=== PATIENT | female | born 1950 | race Caucasian/White ===

== ENCOUNTER → 2016-12-18 | Outpatient (CLI) | payer OTHER ==
--- NOTE | 2016-12-19 10:38 | MG ---
HISTORY: SCREENING Comparison: Multiple priors dating back to 2008 FINDINGS: Bilateral CC and MLO projections of the right and left breast were obtained. Scattered fibroglandul ar tissue is seen to be present without significant interval change. No suspicious architectural di stortion, mass or clustered microcalcifications can be observed to suggest malignancy. No skin thic kening or nipple retraction is appreciated. No pathological lymphadenopathy can be identified. Dennys ign-appearing calcifications are noted within the right and left breast. A left-sided cardiac pacing device is noted. IMPRESSION: NO RADIOGRAPHIC EVIDENCE OF MALIGNANCY. ACR CATEGORY 2 - benign findings. FOLLOW-UP EXAM 1 YEAR. Diagnostic CAD was utilized and reviewed. * 0 (ZERO) - ASSESSMENT INCOMPLETE; ADDITIONAL IMAGING IS NEEDED. * 1/ (ONE) - NEGATIVE. * 2/II (TWO) - BENIGN FINDINGS. * 3/III (THREE) - PROBABLY BENIGN FINDING; SHORT INTERVAL FOLLOW-UP SUGGESTED. * 4/IV (FOUR) - SUSPICIOUS ABNORMALITY; BIOPSY SHOULD BE CONSIDERED. * 5/V (FIVE) - HIGHLY SUSPICIOUS OF MALIGNANCY; BIOPSY SHOULD BE PERFORMED. A NEGATIVE X-RAY REPORT SHOULD NOT DELAY BIOPSY IF A DOMINANT OR CLINICALLY SUSPICIOUS MASS IS PRESENT; 4 TO 8 PERCENT OF CANCERS ARE NOT IDENTIFIED BY X-RAY. A NEG ATIVE REPORT MAY REINFORCE THE CLINICAL IMPRESSION. ADENOSIS AND DENSE BREASTS MAY OBSCURE AN UNDER LYING NEOPLASM. Reported By:
== END ==
LOC: RAD 15:19
PROVIDERS: ATTEND Internal Medicine
DX: Z12.31 Encounter for screening mammogram for malignant neoplasm of breast (principal)
CPT/HCPCS: 77067

== ENCOUNTER → 2017-12-30 | Outpatient (CLI) | payer OTHER ==
--- NOTE | 2017-12-30 12:49 | MG ---
HISTORY: SCREENING Comparison: 12/18/2016 FINDINGS: Bilateral CC and MLO projections of the right and left breast were obtained. Scattered fibroglandula r tissue is seen to be present. No significant architectural distortion, mass or clustered microcalc ifications can be observed to suggest malignancy. No skin thickening or nipple retraction is appreci ated. No pathological lymphadenopathy can be identified. Benign-appearing calcifications scattered throughout the right and left breasts are observed. IMPRESSION: NO RADIOGRAPHIC EVIDENCE OF MALIGNANCY. ACR CATEGORY 2 - benign findings. FOLLOW-UP EXAM 1 YEAR. Diagnostic CAD was utilized and reviewed. * 0 (ZERO) - ASSESSMENT INCOMPLETE; ADDITIONAL IMAGING IS NEEDED. * 1/ (ONE) - NEGATIVE. * 2/II (TWO) - BENIGN FINDINGS. * 3/III (THREE) - PROBABLY BENIGN FINDING; SHORT INTERVAL FOLLOW-UP SUGGESTED. * 4/IV (FOUR) - SUSPICIOUS ABNORMALITY; BIOPSY SHOULD BE CONSIDERED. * 5/V - HIGHLY SUSPICIOUS OF MALIGNANCY; BIOPSY SHOULD BE PERFORMED. A NEGATIVE X-RAY REPORT SHOULD NOT DELAY BIOPSY IF A DOMINANT OR CLINICALLY SUSPICIOUS MASS IS PRESENT; 4 TO 8 PERCENT OF CANCERS ARE NOT IDENTIFIED BY X-RAY. A NEGA TIVE REPORT MAY REINFORCE THE CLINICAL IMPRESSION. ADENOSIS AND DENSE BREASTS MAY OBSCURE AN UNDERLY ING NEOPLASM. Reported By:
== END ==
LOC: RAD 10:13
PROVIDERS: ATTEND Internal Medicine
DX: Z12.31 Encounter for screening mammogram for malignant neoplasm of breast (principal)
CPT/HCPCS: 77067

== ENCOUNTER 2024-01-06 17:04 | Observation (INO) ==
--- NOTE | 2024-01-06 17:24 | DR.NAUSEAF ---
HPI <Brendan Abbott Saurav Filed: 01/07/24 08:52> Time Seen Time Seen by Provider: 01/06/24 17:23 Complaints Chief Complaint Doctors Comments: 73-year-old female brought in for evaluation. Had sudden onset of dizziness/vertigo yesterday evening. Went to the ER in [place], was evaluated there. Had a noncontrast CT scan, diagnosed with vertigo, sent home on meclizine/amoxicillin. Patient has had persistent nausea and vomiting, especially with any head movement. Having dull headache. Having generalized weakness. Patient with difficulty standing due to her vertigo. Patient feels she is dehydrated, has had decreased p.o. intake. Having persistent nausea. 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 Family History Family Medical History: Cancer Social History Does patient currently use any type of tobacco product: No Alcohol Use: None Do you use any recreational Drugs:: No Travel Risk Coronavirus risk:travel/contact w/high risk person: No Has patient experienced Coronavirus symptoms: No ROS <Brendan Abbott Saurav Filed: 01/07/24 08:52> Review of Systems Constitutional: Weakness Eyes: No Symptoms Reported ENTM: No Symptoms Reported Respiratoy: No Symptoms Reported Cardiovascular: No Symptoms Reported Gastrointestinal/Abdominal: Nausea and Vomiting Genitourinary: No Symptoms Reported Neurological: Weakness, Dizziness and Problems Walking Musculoskeletal: No Symptoms Reported Integumentary: No Symptoms Reported Hematologic/Lymphatic: No Symptoms Reported Psychiatric: No Symptoms Reported All Other Systems: Reviewed and Negative PE <Brendan Abbott Saurav Filed: 01/07/24 08:52> Vital Signs Vitals: Vital Signs Temperature 98.1 F Pulse Rate 68 Pulse Rate 71 Pulse Rate 66 Pulse Rate 78 Pulse Rate 74 Pulse Rate 67 Pulse Rate 67 Pulse Rate 69 Pulse Rate 69 Pulse Rate 72 Pulse Rate 73 Respiratory Rate 16 Blood Pressure 144/64 Blood Pressure 149/68 Blood Pressure 149/68 Blood Pressure 148/70 Blood Pressure 144/71 Blood Pressure 137/65 Blood Pressure 132/61 O2 Sat by Pulse Oximetry 99 O2 Sat by Pulse Oximetry 98 O2 Sat by Pulse Oximetry 99 O2 Sat by Pulse Oximetry 97 O2 Sat by Pulse Oximetry 99 O2 Sat by Pulse Oximetry 100 O2 Sat by Pulse Oximetry 100 O2 Sat by Pulse Oximetry 94 O2 Sat by Pulse Oximetry 93 O2 Sat by Pulse Oximetry 91 O2 Sat by Pulse Oximetry 98 General General Appearance: Alert and In No Apparent Distress Head Head Exam: Normal Inspection, Atraumatic and Normocephalic Eyes Eye exam: PERRL, EOMI and Nystagmus (To the left) ENT ENT Exam: Normal Oropharynx, Mucous Membranes Moist and TM's Normal Bilaterally Neck Neck Exam: Normal Inspection Respiratory Respiratory Exam: Normal Lung Sounds Bilat; negative Accessory Muscle Use or Respiratory Distress Cardiovascular Cardiovascular Exam: Regular Rate, Normal Rhythm and Normal Heart Sounds Abdominal Exam Abdominal Exam: Normal Bowel Sounds and Soft; negative Tenderness Extremities Extremities Exam: Normal Inspection and Full ROM; negative Edema Neurologic Neurological Exam: Alert, Oriented X3, CN II-XII Intact and Other (Has normal [id number]); negative Motor Sensory Deficit Skin Skin Exam: Warm and Dry <Elle Gaitan - Last Filed: 01/06/24 20:36> Vital Signs Vitals: Vital Signs Temperature 98.1 F Pulse Rate 68 Pulse Rate 71 Pulse Rate 66 Pulse Rate 78 Pulse Rate 74 Pulse Rate 67 Pulse Rate 67 Pulse Rate 69 Pulse Rate 69 Pulse Rate 72 Pulse Rate 73 Respiratory Rate 16 Blood Pressure 144/64 Blood Pressure 149/68 Blood Pressure 149/68 Blood Pressure 148/70 Blood Pressure 144/71 Blood Pressure 137/65 Blood Pressure 132/61 O2 Sat by Pulse Oximetry 99 O2 Sat by Pulse Oximetry 98 O2 Sat by Pulse Oximetry 99 O2 Sat by Pulse Oximetry 97 O2 Sat by Pulse Oximetry 99 O2 Sat by Pulse Oximetry 100 O2 Sat by Pulse Oximetry 100 O2 Sat by Pulse Oximetry 94 O2 Sat by Pulse Oximetry 93 O2 Sat by Pulse Oximetry 91 O2 Sat by Pulse Oximetry 98 COURSE <Brendan Abbott - Last Filed: 01/07/24 08:52> Treatment Treatment: 73-year-old female with vertigo, nausea and vomiting over the past two days. Evaluated another ER last p.m. Not doing much better. Having persistent nausea, unable to stand up easily. Workup initiated. Patient given IV fluids, IV Protonix here. 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 5 -CBC, CMP unremarkable. Finished 1 L normal saline. Just urinated. Pt feeling poorly, dizziness & nausea persists. Given p.o. meclizine, 25 mg, and Ativan, 1 mg IV. Will continue IV fluids, will plan on admitting the patient for further treatment. Discussed with Dr. Whelan, on-call for admissions. Accepts the admission. He would like me to repeat the CT of the head since was not done here previously. <Elle Gaitan - Last Filed: 01/06/24 20:36> Treatment Treatment: 73-year-old female with vertigo, nausea and vomiting over the past two days. Evaluated another ER last p.m. Not doing much better. Having persistent nausea, unable to stand up easily. Workup initiated. Patient given IV fluids, IV Protonix here. 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 5 -CBC, CMP unremarkable. Finished 1 L normal saline. Just urinated. Pt feeling poorly, dizziness & nausea persists. Given p.o. meclizine, 25 mg, and Ativan, 1 mg IV. Will continue IV fluids, will plan on admitting the patient for further treatment. Discussed with Dr. Whelan, on-call for admissions. Accepts the admission. He would like me to repeat the CT of the head since was not done here previously. 20:[address] without contrast did not reveal an acute process. Patient has been admitted to Dr. Whelan's service for further evaluation and treatment. Patient has been stable in the emergency department. ROR <Brendan Baileywashington - Last Filed: 01/07/24 08:52> Labs Reviewed 01/07/24 05:44 01/07/24 05:44 Laboratory: WBC 14.5 X10^3/uL (3.6-10.0) H 01/06/24 17:45 RBC 4.69 X10^6/uL (3.5-5.4) 01/06/24 17:45 Hgb 14.0 g/dL (12.0-16.0) 01/06/24 17:45 Hct 41.9 % (36.0-47.0) 01/06/24 17:45 MCV 89.3 fL (80.0-100.0) 01/06/24 17:45 MCH 29.8 pg (27.0-34.0) 01/06/24 17:45 MCHC 33.4 g/dL (33.0-35.0) 01/06/24 17:45 RDW 13.7 % (11.6-16.5) 01/06/24 17:45 Plt Count 249 X10^3/uL (150.0-450.0) 01/06/24 17:45 MPV 8.0 fL (7.4-11.0) 01/06/24 17:45 Neut % (Auto) 79.8 % (42.0-75.0) H 01/06/24 17:45 Lymph % (Auto) 14.9 % (21.0-51.0) L 01/06/24 17:45 Cassia % (Auto) 4.8 % (0.0-13.0) 01/06/24 17:45 Eos % (Auto) 0.1 % (0.9-2.9) L 01/06/24 17:45 Baso % (Auto) 0.4 % (0.2-1.0) 01/06/24 17:45 Neut # (Auto) 11.6 x10^3/uL (2.2-4.8) H 01/06/24 17:45 Lymph # (Auto) 2.2 X10^3/uL (1.3-2.9) 01/06/24 17:45 Cassia # (Auto) 0.7 x10^3/uL (0.3-0.8) 01/06/24 17:45 Eos # (Auto) 0.0 x10^3/uL (0.0-0.2) 01/06/24 17:45 Baso # (Auto) 0.1 X10^3/uL (0.0-0.1) 01/06/24 17:45 Absolute Nucleated RBC 0.2 /100WBC 01/06/24 17:45 Sodium 142 mmol/L (136-145) 01/06/24 17:45 Corrected Sodium TNP 01/06/24 17:45 Potassium 3.7 mmol/L (3.5-5.1) 01/06/24 17:45 Chloride 105 mmol/L (98-107) 01/06/24 17:45 Carbon Dioxide 28.4 mmol/L (21-32) 01/06/24 17:45 BUN 12 mg/dL (7-18) 01/06/24 17:45 Creatinine 1.02 mg/dL (0.55-1.02) 01/06/24 17:45 Est GFR (MDRD) Af Amer > 60 (>60) 01/06/24 17:45 Est GFR (MDRD) Non-Af 57 (>60) L 01/06/24 17:45 Glucose 103 mg/dL (65-99) H 01/06/24 17:45 Calcium 9.3 mg/dL (8.5-10.1) 01/06/24 17:45 Corrected Calcium 9.9 mg/dL (8.5-10.1) 01/06/24 17:45 Total Bilirubin 0.60 mg/dL (0.2-1.0) 01/06/24 17:45 AST 24 Units/L (15-37) 01/06/24 17:45 ALT 33 Units/L (12-78) 01/06/24 17:45 Alkaline Phosphatase 84 Units/L (46-116) 01/06/24 17:45 Total Protein 8.3 g/dL (6.4-8.2) H 01/06/24 17:45 Albumin 3.3 g/dL (3.4-5.0) L 01/06/24 17:45 Globulin 5.0 g/dL (2.5-4.5) H 01/06/24 17:45 Albumin/Globulin Ratio 0.7 Ratio (1.1-2.1) L 01/06/24 17:45 Lipase 44 Units/L (16-77) 01/06/24 17:45 Specimen Type Clean catch urine 01/06/24 19:45 Urine Color Straw (YELLOW) 01/06/24 19:45 Urine Appearance Clear (CLEAR) 01/06/24 19:45 Urine pH 7.0 (5.0 - 8.0) 01/06/24 19:45 Ur Specific [place] 1.015 (1.000-1.030) 01/06/24 19:45 Urine Protein Negative (NEGATIVE) 01/06/24 19:45 Urine Glucose (UA) Negative (NEGATIVE) 01/06/24 19:45 Urine Ketones Negative (NEGATIVE) 01/06/24 19:45 Urine Blood Negative (NEGATIVE) 01/06/24 19:45 Urine Nitrite Negative (NEGATIVE) 01/06/24 19:45 Urine Bilirubin Negative (NEGATIVE) 01/06/24 19:45 Urine Urobilinogen Normal (NORMAL) 01/06/24 19:45 Ur Leukocyte Esterase Negative (NEGATIVE) 01/06/24 19:45 <Elle Arnie - Last Filed: 01/06/24 20:36> Labs Reviewed Laboratory: WBC 14.5 X10^3/uL (3.6-10.0) H 01/06/24 17:45 RBC 4.69 X10^6/uL (3.5-5.4) 01/06/24 17:45 Hgb 14.0 g/dL (12.0-16.0) 01/06/24 17:45 Hct 41.9 % (36.0-47.0) 01/06/24 17:45 MCV 89.3 fL (80.0-100.0) 01/06/24 17:45 MCH 29.8 pg (27.0-34.0) 01/06/24 17:45 MCHC 33.4 g/dL (33.0-35.0) 01/06/24 17:45 RDW 13.7 % (11.6-16.5) 01/06/24 17:45 Plt Count 249 X10^3/uL (150.0-450.0) 01/06/24 17:45 MPV 8.0 fL (7.4-11.0) 01/06/24 17:45 Neut % (Auto) 79.8 % (42.0-75.0) H 01/06/24 17:45 Lymph % (Auto) 14.9 % (21.0-51.0) L 01/06/24 17:45 Cassia % (Auto) 4.8 % (0.0-13.0) 01/06/24 17:45 Eos % (Auto) 0.1 % (0.9-2.9) L 01/06/24 17:45 Baso % (Auto) 0.4 % (0.2-1.0) 01/06/24 17:45 Neut # (Auto) 11.6 x10^3/uL (2.2-4.8) H 01/06/24 17:45 Lymph # (Auto) 2.2 X10^3/uL (1.3-2.9) 01/06/24 17:45 Cassia # (Auto) 0.7 x10^3/uL (0.3-0.8) 01/06/24 17:45 Eos # (Auto) 0.0 x10^3/uL (0.0-0.2) 01/06/24 17:45 Baso # (Auto) 0.1 X10^3/uL (0.0-0.1) 01/06/24 17:45 Absolute Nucleated RBC 0.2 /100WBC 01/06/24 17:45 Sodium 142 mmol/L (136-145) 01/06/24 17:45 Corrected Sodium TNP 01/06/24 17:45 Potassium 3.7 mmol/L (3.5-5.1) 01/06/24 17:45 Chloride 105 mmol/L (98-107) 01/06/24 17:45 Carbon Dioxide 28.4 mmol/L (21-32) 01/06/24 17:45 BUN 12 mg/dL (7-18) 01/06/24 17:45 Creatinine 1.02 mg/dL (0.55-1.02) 01/06/24 17:45 Est GFR (MDRD) Af Amer > 60 (>60) 01/06/24 17:45 Est GFR (MDRD) Non-Af 57 (>60) L 01/06/24 17:45 Glucose 103 mg/dL (65-99) H 01/06/24 17:45 Calcium 9.3 mg/dL (8.5-10.1) 01/06/24 17:45 Corrected Calcium 9.9 mg/dL (8.5-10.1) 01/06/24 17:45 Total Bilirubin 0.60 mg/dL (0.2-1.0) 01/06/24 17:45 AST 24 Units/L (15-37) 01/06/24 17:45 ALT 33 Units/L (12-78) 01/06/24 17:45 Alkaline Phosphatase 84 Units/L (46-116) 01/06/24 17:45 Total Protein 8.3 g/dL (6.4-8.2) H 01/06/24 17:45 Albumin 3.3 g/dL (3.4-5.0) L 01/06/24 17:45 Globulin 5.0 g/dL (2.5-4.5) H 01/06/24 17:45 Albumin/Globulin Ratio 0.7 Ratio (1.1-2.1) L 01/06/24 17:45 Lipase 44 Units/L (16-77) 01/06/24 17:45 Specimen Type Clean catch urine 01/06/24 19:45 Urine Color Straw (YELLOW) 01/06/24 19:45 Urine Appearance Clear (CLEAR) 01/06/24 19:45 Urine pH 7.0 (5.0 - 8.0) 01/06/24 19:45 Ur Specific [place] 1.015 (1.000-1.030) 01/06/24 19:45 Urine Protein Negative (NEGATIVE) 01/06/24 19:45 Urine Glucose (UA) Negative (NEGATIVE) 01/06/24 19:45 Urine Ketones Negative (NEGATIVE) 01/06/24 19:45 Urine Blood Negative (NEGATIVE) 01/06/24 19:45 Urine Nitrite Negative (NEGATIVE) 01/06/24 19:45 Urine Bilirubin Negative (NEGATIVE) 01/06/24 19:45 Urine Urobilinogen Normal (NORMAL) 01/06/24 19:45 Ur Leukocyte Esterase Negative (NEGATIVE) 01/06/24 19:45 Opioid <Brendan Abbott - Last Filed: 01/07/24 08:52> Opioid Risk Tool Age (Agustin box if 16-45): No History of Preadolescent Sexual Abuse: No Total: 0 Total Score Risk Category: Low Risk Copyright: [employer] predicting aberrant behaviors <Elle Gaitan - Last Filed: 01/06/24 20:36> Opioid Risk Tool Total: 0 Total Score Risk Category: Low Risk Discharge Plan Diagnosis Discharge Problem: Acute labyrinthitis, Nausea and vomiting in adult patient Discharge Plan Patient Disposition: ADMITTED INPATIENT Condition: Stable
[2024-01-06] MEDS: PROTONIX INJ 40 MG VIAL IVP ONE (17:42)
[2024-01-06] MEDS: NS 1,000 ML IV 1,000 ML IV ONE (17:42)
[2024-01-06 17:58] LABS: BASOPHILS # (AUTO) 0.1 X10^3/uL (0.0-0.1); BASOPHILS % (AUTO) 0.4 % (0.2-1.0); EOSINOPHILS % (AUTO) 0.1 % (0.9-2.9); HEMATOCRIT 41.9 % (36.0-47.0); LYMPHOCYTES # (AUTO) 2.2 X10^3/uL (1.3-2.9); LYMPHOCYTES % (AUTO) 14.9 % (21.0-51.0); MEAN CORPUSCULAR HEMOGLOBIN 29.8 pg (27.0-34.0); MEAN CORPUSCULAR HGB CONC 33.4 g/dL (33.0-35.0); MEAN CORPUSCULAR VOLUME 89.3 fL (80.0-100.0); MONOCYTES # (AUTO) 0.7 x10^3/uL (0.3-0.8); MONOCYTES % (AUTO) 4.8 % (0.0-13.0); NEUTROPHILS # (AUTO) 11.6 x10^3/uL (2.2-4.8); NEUTROPHILS % (AUTO) 79.8 % (42.0-75.0); PLATELET COUNT 249 X10^3/uL (150.0-450.0); RED BLOOD COUNT 4.69 X10^6/uL (3.5-5.4); RED CELL DISTRIBUTION WIDTH 13.7 % (11.6-16.5); WHITE BLOOD COUNT 14.5 X10^3/uL (3.6-10.0)
[2024-01-06 18:07] LABS: ALANINE AMINOTRANSFERASE 33 Units/L (12-78); ALBUMIN 3.3 g/dL (3.4-5.0); ALKALINE PHOSPHATASE 84 Units/L (46-116); ASPARTATE AMINO TRANSFERASE 24 Units/L (15-37); BLOOD UREA NITROGEN 12 mg/dL (7-18); CALCIUM 9.3 mg/dL (8.5-10.1); CARBON DIOXIDE 28.4 mmol/L (21-32); CHLORIDE 105 mmol/L (98-107); COR CA(FOR HYPOALB) 9.9 mg/dL (8.5-10.1); CREATININE 1.02 mg/dL (0.55-1.02); GLUCOSE 103 mg/dL (65-99); LIPASE 44 Units/L (16-77); POTASSIUM 3.7 mmol/L (3.5-5.1); SODIUM 142 mmol/L (136-145); TOTAL PROTEIN 8.3 g/dL (6.4-8.2); eGFR NON BLACK RACES 57 (>60)
[2024-01-06 19:54] LABS: BILIRUBIN,URINE NEGATIVE (NEGATIVE); BLOOD/HEMOGLOBIN,URINE NEGATIVE (NEGATIVE); GLUCOSE, URINE NEGATIVE (NEGATIVE); KETONES,URINE NEGATIVE (NEGATIVE); LEUKOCYTE ESTERASE ,URINE NEGATIVE (NEGATIVE); NITRITES,URINE NEGATIVE (NEGATIVE); PROTEIN,URINE NEGATIVE (NEGATIVE); UROBILINOGEN,URINE NORMAL (NORMAL)
[2024-01-06] MEDS: ANTIVERT TAB 25 MG PO ONE (19:56)
[2024-01-06] MEDS: ATIVAN INJ 2 MG VIAL IVP ONE (19:56)
[2024-01-06] MEDS: D5 NS 1,000 ML IV 1,000 ML IV SCH (19:56)
[2024-01-06 19:58] LABS: APPEARANCE,URINE CLEAR (CLEAR); COLOR,URINE STRAW (YELLOW)
--- NOTE | 2024-01-06 20:17 | CT ---
EXAM: BRAIN W/O CON HISTORY: vertigo, N/V; COMPARISON: 02/16/2022. TECHNIQUE: Nonenhanced spiral CT imaging was performed through the head and axial, coronal, and sagittal CT imag es were generated. FINDINGS: The ventricles and sulci are prominent. There is hypodensity in the periventricular and subcortical white matter compatible with small-vessel ischemic disease. The brain parenchyma otherwise has renata l density. There is no sulcal effacement or focal loss of the card-white junction to suggest acute i nfarct. There is no intracranial hemorrhage. There is no mass effect or midline shift. The calvari um is intact. Mastoid air cells and middle ear cavities are clear. The paranasal sinuses are clear. IMPRESSION: No acute abnormality. THIS IS AN ELECTRONICALLY VERIFIED FINAL REPORT 01/06/2024 8:14 PM - Electronically signed by Robbie Nagy MD
[2024-01-06] MEDS ORDERED: ATIVAN TAB 1 MG PO PRN (20:32)
[2024-01-06] MEDS ORDERED: ANTIVERT TAB 25 MG PO PRN (21:07)
[2024-01-06] MEDS ORDERED: CONSULT PHARMACY - POTASSIUM & MAGNESIUM XX SCH (22:00)
[2024-01-06] MEDS: K-DUR TAB 20 MEQ PO ONE (22:21)
[2024-01-06] MEDS: ZOCOR TAB 40 MG PO SCH (22:21)
[2024-01-06 22:56] VITALS: BMI 36.9
[2024-01-07] MEDS: ELIQUIS PO SCH (01:03)
[2024-01-07] MEDS: STERILE WATER IRRIGATION IR ONE (01:05)
[2024-01-07 06:43] LABS: BASOPHILS # (AUTO) 0.1 X10^3/uL (0.0-0.1); BASOPHILS % (AUTO) 0.4 % (0.2-1.0); EOSINOPHILS # (AUTO) 0.1 x10^3/uL (0.0-0.2); EOSINOPHILS % (AUTO) 0.6 % (0.9-2.9); HEMATOCRIT 40.7 % (36.0-47.0); HEMOGLOBIN 13.6 g/dL (12.0-16.0); LYMPHOCYTES # (AUTO) 3.1 X10^3/uL (1.3-2.9); LYMPHOCYTES % (AUTO) 23.8 % (21.0-51.0); MEAN CORPUSCULAR HEMOGLOBIN 30.1 pg (27.0-34.0); MEAN CORPUSCULAR HGB CONC 33.4 g/dL (33.0-35.0); MEAN CORPUSCULAR VOLUME 89.9 fL (80.0-100.0); MEAN PLATELET VOLUME 8.5 fL (7.4-11.0); MONOCYTES # (AUTO) 0.8 x10^3/uL (0.3-0.8); MONOCYTES % (AUTO) 6.3 % (0.0-13.0); NEUTROPHILS % (AUTO) 68.9 % (42.0-75.0); PLATELET COUNT 242 X10^3/uL (150.0-450.0); RED BLOOD COUNT 4.53 X10^6/uL (3.5-5.4); RED CELL DISTRIBUTION WIDTH 13.9 % (11.6-16.5)
[2024-01-07 06:52] LABS: ALANINE AMINOTRANSFERASE 33 Units/L (12-78); ALBUMIN 3.1 g/dL (3.4-5.0); ALKALINE PHOSPHATASE 73 Units/L (46-116); ASPARTATE AMINO TRANSFERASE 24 Units/L (15-37); BLOOD UREA NITROGEN 13 mg/dL (7-18); CALCIUM 8.8 mg/dL (8.5-10.1); CARBON DIOXIDE 29.3 mmol/L (21-32); CHLORIDE 108 mmol/L (98-107); COR CA(FOR HYPOALB) 9.5 mg/dL (8.5-10.1); CREATININE 1.04 mg/dL (0.55-1.02); GLUCOSE 109 mg/dL (65-99); MAGNESIUM 2.3 mg/dL (2.0-2.9); POTASSIUM 3.9 mmol/L (3.5-5.1); SODIUM 143 mmol/L (136-145); TOTAL PROTEIN 7.7 g/dL (6.4-8.2); eGFR NON BLACK RACES 55 (>60)
[2024-01-07] MEDS: MIRAPEX TAB 1 MG PO SCH (08:48)
[2024-01-07] MEDS: PROTONIX TAB 40 MG PO SCH (08:48)
[2024-01-07] MEDS: EFFEXOR XR 37.5 MG CAP 24-HR PO SCH (08:48)
[2024-01-07] MEDS: SYNTHROID 50 mcg TAB PO SCH (08:48)
[2024-01-07] MEDS: AUGMENTIN 875 MG/125 MG TAB PO SCH (10:45)
--- NOTE | 2024-01-07 11:01 | DR.H&P ---
H&P History & Physical for Day of: H&P Date: 01/07/24 Chief Complaint Chief Complaint: Vertigo Allergies Allergies Allergy/AdvReac Type Severity Reaction Status Date / Time iodine Allergy Verified 10/31/19 02:39 History of Present Illness History of Present Illness: Pt is a 73 year old female with past medical history of hypertension, hypothyroidism, depression, presenting after having multiple vertigo episodes that caused her to have nausea and vomiting. Reports she has not been eating much due to the nausea and has been having difficulty keeping her balance while ambulating due to dizziness. Labs/imaging: WBC 13, hemoglobin 13.6, platelets 242, sodium 143, potassium 3.9, creatinine 1.04, glucose 109. CT head no acute intracranial findings. Patient was admitted for labyrinthitis, vertigo, dehydration. She was started on IV fluids D5 normal saline at 80 mL/h, meclizine 25 mg 3 times daily, antibiotics: Augmentin twice daily, ativan prn, Zofran as needed for nausea. Home medications have been resumed. Will order physical therapy for further evaluation and treatment. Otherwise continue with current treatment plan. Continue closely monitor and follow-up labs in the morning. 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 Family History Family Medical History: Hypertension Social History Does patient currently use any type of tobacco product: No Have you used tobacco products in the last 12 months: No Type of Tobacco Use: None Does any household member use tobacco: No Alcohol Use: None Drug Use: None Medications Home Medications: Home Medications Medication Instructions Recorded Confirmed Type amoxicillin 875 mg-potassium 1 tab PO BID 01/06/24 01/06/24 History clavulanate 125 mg tablet apixaban 5 mg tablet (Eliquis) 5 mg PO BID 01/06/24 01/06/24 History cholecalciferol (vitamin D3) 1,250 1,250 mcg PO QWEEK 01/06/24 01/06/24 History mcg (50,000 unit) capsule levothyroxine 50 mcg tablet 50 mcg PO QAM disorder of thyroid 01/06/24 01/06/24 History gland metoprolol succinate 25 mg 25 mg PO QDAY blood pressure 01/06/24 01/06/24 History tablet,extended release 24 hr pantoprazole 40 mg tablet,delayed 40 mg PO QDAY 01/06/24 01/06/24 History release pramipexole 1 mg tablet 1 mg PO QDAY 01/06/24 01/06/24 History simvastatin 40 mg tablet 40 mg PO QPM cholesterol 01/06/24 01/06/24 History venlafaxine 37.5 mg 37.5 mg PO QDAY 01/06/24 01/06/24 History capsule,extended release 24 hr Labs 01/07/24 05:44 01/07/24 05:44 Labs: Laboratory WBC 13.0 X10^3/uL (3.6-10.0) H 01/07/24 05:44 RBC 4.53 X10^6/uL (3.5-5.4) 01/07/24 05:44 Hgb 13.6 g/dL (12.0-16.0) 01/07/24 05:44 Hct 40.7 % (36.0-47.0) 01/07/24 05:44 MCV 89.9 fL (80.0-100.0) 01/07/24 05:44 MCH 30.1 pg (27.0-34.0) 01/07/24 05:44 MCHC 33.4 g/dL (33.0-35.0) 01/07/24 05:44 RDW 13.9 % (11.6-16.5) 01/07/24 05:44 Plt Count 242 X10^3/uL (150.0-450.0) 01/07/24 05:44 MPV 8.5 fL (7.4-11.0) 01/07/24 05:44 Neut % (Auto) 68.9 % (42.0-75.0) 01/07/24 05:44 Lymph % (Auto) 23.8 % (21.0-51.0) 01/07/24 05:44 [place] % (Auto) 6.3 % (0.0-13.0) 01/07/24 05:44 Eos % (Auto) 0.6 % (0.9-2.9) L 01/07/24 05:44 Baso % (Auto) 0.4 % (0.2-1.0) 01/07/24 05:44 Neut # (Auto) 9.0 x10^3/uL (2.2-4.8) H 01/07/24 05:44 Lymph # (Auto) 3.1 X10^3/uL (1.3-2.9) H 01/07/24 05:44 [place] # (Auto) 0.8 x10^3/uL (0.3-0.8) 01/07/24 05:44 Eos # (Auto) 0.1 x10^3/uL (0.0-0.2) 01/07/24 05:44 Baso # (Auto) 0.1 X10^3/uL (0.0-0.1) 01/07/24 05:44 Absolute Nucleated RBC 0.0 /100WBC 01/07/24 05:44 Sodium 143 mmol/L (136-145) 01/07/24 05:44 Corrected Sodium TNP 01/07/24 05:44 Potassium 3.9 mmol/L (3.5-5.1) 01/07/24 05:44 Chloride 108 mmol/L (98-107) H 01/07/24 05:44 Carbon Dioxide 29.3 mmol/L (21-32) 01/07/24 05:44 BUN 13 mg/dL (7-18) 01/07/24 05:44 Creatinine 1.04 mg/dL (0.55-1.02) H 01/07/24 05:44 Est GFR (MDRD) Af Amer > 60 (>60) 01/07/24 05:44 Est GFR (MDRD) Non-Af 55 (>60) L 01/07/24 05:44 Glucose 109 mg/dL (65-99) H 01/07/24 05:44 Calcium 8.8 mg/dL (8.5-10.1) 01/07/24 05:44 Corrected Calcium 9.5 mg/dL (8.5-10.1) 01/07/24 05:44 Magnesium 2.3 mg/dL (2.0-2.9) 01/07/24 05:44 Total Bilirubin 0.40 mg/dL (0.2-1.0) 01/07/24 05:44 AST 24 Units/L (15-37) 01/07/24 05:44 ALT 33 Units/L (12-78) 01/07/24 05:44 Alkaline Phosphatase 73 Units/L (46-116) 01/07/24 05:44 Total Protein 7.7 g/dL (6.4-8.2) 01/07/24 05:44 Albumin 3.1 g/dL (3.4-5.0) L 01/07/24 05:44 Globulin 4.6 g/dL (2.5-4.5) H 01/07/24 05:44 Albumin/Globulin Ratio 0.7 Ratio (1.1-2.1) L 01/07/24 05:44 Lipase 44 Units/L (16-77) 01/06/24 17:45 Specimen Type Clean catch urine 01/06/24 19:45 Urine Color Straw (YELLOW) 01/06/24 19:45 Urine Appearance Clear (CLEAR) 01/06/24 19:45 Urine pH 7.0 (5.0 - 8.0) 01/06/24 19:45 Ur Specific [place] 1.015 (1.000-1.030) 01/06/24 19:45 Urine Protein Negative (NEGATIVE) 01/06/24 19:45 Urine Glucose (UA) Negative (NEGATIVE) 01/06/24 19:45 Urine Ketones Negative (NEGATIVE) 01/06/24 19:45 Urine Blood Negative (NEGATIVE) 01/06/24 19:45 Urine Nitrite Negative (NEGATIVE) 01/06/24 19:45 Urine Bilirubin Negative (NEGATIVE) 01/06/24 19:45 Urine Urobilinogen Normal (NORMAL) 01/06/24 19:45 Ur Leukocyte Esterase Negative (NEGATIVE) 01/06/24 19:45 Review of Systems Constitutional: Weakness Eyes: No Symptoms Reported ENT: No Symptoms Reported Respiratory: No Symptoms Reported Cardiovascular: No Symptoms Reported Gastrointestinal: No Symptoms Reported Genitourinary: No Symptoms Reported Musculoskeletal: No Symptoms Reported Skin: No Symptoms Reported Neurological: Other (dizziness ) Physical Exam Vital Signs: Vital Signs Temperature 97.8 F Temperature 98.0 F Pulse Rate [Left] 67 Pulse Rate [Left] 68 Respiratory Rate 20 Respiratory Rate 20 Blood Pressure [Left Arm] 146/68 Blood Pressure [Left Arm] 134/63 O2 Sat by Pulse Oximetry 98 O2 Sat by Pulse Oximetry 98 Oriented: Normal Eyes: Normal Ear: Normal Nose: Normal Throat: Normal Respiratory: Clear Throughout Cardiovascular: Normal : Normal Auscultation: Bowel Sounds: Normal Palpation: Normal Tenderness: Normal Skin: Normal Musculoskeletal: Normal Psychiatric: Normal Mood Description: Calm and Appropriate Affect: Normal Speech Pattern: Clear and Appropriate Assessment/Plan (1) Acute labyrinthitis: Status: Acute Plan: continue augmentin (2) Nausea and vomiting in adult patient: Status: Acute (3) Dehydration: Status: Acute Review H&P Reviewed: Yes Patient was examined?: Yes
[2024-01-07] MEDS: ZOFRAN TAB 4 MG PO PRN (11:53)
[2024-01-07] MEDS: ANTIVERT TAB 25 MG PO SCH (13:43)
[2024-01-07] MEDS: SOLU-Medrol 40 MG VIAL IVP SCH (14:23)
[2024-01-07] MEDS: TOPROL XL PO SCH (20:42)
[2024-01-08 06:51] LABS: BASOPHILS % (AUTO) 0.3 % (0.2-1.0); EOSINOPHILS % (AUTO) 0.2 % (0.9-2.9); HEMATOCRIT 39.4 % (36.0-47.0); HEMOGLOBIN 12.9 g/dL (12.0-16.0); LYMPHOCYTES # (AUTO) 2.7 X10^3/uL (1.3-2.9); LYMPHOCYTES % (AUTO) 23.5 % (21.0-51.0); MEAN CORPUSCULAR HEMOGLOBIN 29.5 pg (27.0-34.0); MEAN CORPUSCULAR HGB CONC 32.8 g/dL (33.0-35.0); MEAN CORPUSCULAR VOLUME 89.9 fL (80.0-100.0); MONOCYTES # (AUTO) 0.7 x10^3/uL (0.3-0.8); MONOCYTES % (AUTO) 6.1 % (0.0-13.0); NEUTROPHILS # (AUTO) 7.9 x10^3/uL (2.2-4.8); NEUTROPHILS % (AUTO) 69.9 % (42.0-75.0); PLATELET COUNT 241 X10^3/uL (150.0-450.0); RED BLOOD COUNT 4.39 X10^6/uL (3.5-5.4); RED CELL DISTRIBUTION WIDTH 13.6 % (11.6-16.5); WHITE BLOOD COUNT 11.3 X10^3/uL (3.6-10.0)
[2024-01-08 07:16] LABS: ALANINE AMINOTRANSFERASE 34 Units/L (12-78); ALBUMIN 2.9 g/dL (3.4-5.0); ALKALINE PHOSPHATASE 73 Units/L (46-116); ASPARTATE AMINO TRANSFERASE 24 Units/L (15-37); BLOOD UREA NITROGEN 12 mg/dL (7-18); CALCIUM 8.7 mg/dL (8.5-10.1); CARBON DIOXIDE 26.7 mmol/L (21-32); CHLORIDE 106 mmol/L (98-107); COR CA(FOR HYPOALB) 9.6 mg/dL (8.5-10.1); CREATININE 0.97 mg/dL (0.55-1.02); GLUCOSE 107 mg/dL (65-99); SODIUM 140 mmol/L (136-145); TOTAL PROTEIN 7.4 g/dL (6.4-8.2); eGFR NON BLACK RACES 60 (>60)
[2024-01-08 10:35] VITALS: RESP 18
[2024-01-08 12:38] VITALS: BP 178/79; PULSE 64; TEMP 98.5; O2SAT 95
[2024-01-11] MEDS ORDERED: VITAMIN D3 125 mcg (5,000 UNITS) PO SCH (09:00)
--- NOTE | 2024-01-11 15:16 | W.DIS.FURT ---
Summary of Discharge Discharge Summary of Date Date of Exam: 01/08/24 Admission Date Date of Admission: 01/06/24 Admission Diagnosis Patient Problems (Updated 01/07/24 @ 11:01 by Michele Whelan) Acute labyrinthitis (Acute) H83.09 Nausea and vomiting in adult patient (Acute) R11.2 Hospital Course: Pt is a 73 year old female with past medical history of hypertension, hypothyroidism, depression, presenting admitted for labyrinthitis, vertigo, dehydration. Her hospital/treatment course included IV fluids D5 normal saline at 80 mL/h, meclizine 25 mg 3 times daily, antibiotics: Augmentin twice daily, ativan prn, Zofran as needed for nausea. Home medications were resumed. Physical therapy. Pt responded well to treatment and symptoms significantly improved. Rx augmentin, prednisone, and meclizine. Pt discharged in stable condition with home health, instructed to follow up with pcp in 1 week. Vital Signs: Vital Signs (72 hours) 01/06/24 17:06 01/06/24 17:49 01/06/24 18:00 Temperature 98.1 F Pulse Rate 73 72 69 Pulse Rate [Left] Respiratory Rate 16 Blood Pressure 132/61 Blood Pressure [Left Arm] O2 Sat by Pulse Oximetry 98 91 L 93 L Oxygen Delivery Method Room Air 01/06/24 18:00 01/06/24 18:15 01/06/24 18:30 Temperature Pulse Rate 69 67 Pulse Rate [Left] Respiratory Rate Blood Pressure 137/65 Blood Pressure [Left Arm] O2 Sat by Pulse Oximetry 94 L 100 Oxygen Delivery Method 01/06/24 18:30 01/06/24 18:30 01/06/24 18:34 Temperature Pulse Rate 67 74 Pulse Rate [Left] Respiratory Rate Blood Pressure 144/71 Blood Pressure [Left Arm] O2 Sat by Pulse Oximetry 100 99 Oxygen Delivery Method 01/06/24 19:00 01/06/24 19:30 01/06/24 19:30 Temperature Pulse Rate Pulse Rate [Left] Respiratory Rate Blood Pressure 148/70 149/68 149/68 Blood Pressure [Left Arm] O2 Sat by Pulse Oximetry Oxygen Delivery Method 01/06/24 19:45 01/06/24 20:07 01/06/24 20:10 Temperature Pulse Rate 78 66 71 Pulse Rate [Left] Respiratory Rate Blood Pressure Blood Pressure [Left Arm] O2 Sat by Pulse Oximetry 97 99 98 Oxygen Delivery Method 01/06/24 20:10 01/06/24 20:15 01/06/24 21:25 Temperature Pulse Rate 68 Pulse Rate [Left] 67 Respiratory Rate 18 Blood Pressure 144/64 Blood Pressure [Left Arm] O2 Sat by Pulse Oximetry 99 97 Oxygen Delivery Method 01/06/24 20:30 01/06/24 20:30 01/06/24 20:30 Temperature Pulse Rate 66 Pulse Rate [Left] Respiratory Rate Blood Pressure 154/67 154/67 Blood Pressure [Left Arm] O2 Sat by Pulse Oximetry 97 Oxygen Delivery Method 01/06/24 20:45 01/06/24 21:00 01/06/24 21:00 Temperature Pulse Rate 65 67 Pulse Rate [Left] Respiratory Rate Blood Pressure 158/70 Blood Pressure [Left Arm] O2 Sat by Pulse Oximetry 99 96 Oxygen Delivery Method 01/06/24 21:07 01/06/24 22:00 01/06/24 21:30 Temperature 98.0 F Pulse Rate Pulse Rate [Left] 67 Respiratory Rate 18 Blood Pressure Blood Pressure [Left Arm] 147/66 O2 Sat by Pulse Oximetry 96 Oxygen Delivery Method Room Air Room Air Room Air 01/06/24 23:40 01/07/24 04:00 01/07/24 08:00 Temperature 97.7 F 98.0 F 97.8 F Pulse Rate Pulse Rate [Left] 68 68 67 Respiratory Rate 20 20 20 Blood Pressure Blood Pressure [Left Arm] 137/64 134/63 146/68 O2 Sat by Pulse Oximetry 96 98 98 Oxygen Delivery Method Room Air Room Air Room Air 01/07/24 10:08 01/07/24 10:21 01/07/24 12:00 Temperature 98.3 F Pulse Rate Pulse Rate [Left] 67 Respiratory Rate 22 Blood Pressure Blood Pressure [Left Arm] 159/74 O2 Sat by Pulse Oximetry 94 L Oxygen Delivery Method Room Air Room Air Room Air 01/07/24 16:00 01/07/24 19:00 01/07/24 20:00 Temperature 98.3 F 98.5 F Pulse Rate Pulse Rate [Left] 63 68 Respiratory Rate 20 19 Blood Pressure Blood Pressure [Left Arm] 178/74 171/73 O2 Sat by Pulse Oximetry 93 L 94 L Oxygen Delivery Method Room Air Room Air Room Air 01/07/24 21:20 01/08/24 00:00 01/08/24 04:00 Temperature 98.2 F 98.1 F Pulse Rate Pulse Rate [Left] 67 62 Respiratory Rate 21 19 Blood Pressure Blood Pressure [Left Arm] 158/75 146/70 O2 Sat by Pulse Oximetry 94 L 96 Oxygen Delivery Method Room Air Room Air Room Air 01/08/24 07:00 Temperature Pulse Rate Pulse Rate [Left] Respiratory Rate Blood Pressure Blood Pressure [Left Arm] O2 Sat by Pulse Oximetry Oxygen Delivery Method Room Air Labs: Laboratory Last Values WBC 11.3 X10^3/uL (3.6-10.0) H 01/08/24 06:20 RBC 4.39 X10^6/uL (3.5-5.4) 01/08/24 06:20 Hgb 12.9 g/dL (12.0-16.0) 01/08/24 06:20 Hct 39.4 % (36.0-47.0) 01/08/24 06:20 MCV 89.9 fL (80.0-100.0) 01/08/24 06:20 MCH 29.5 pg (27.0-34.0) 01/08/24 06:20 MCHC 32.8 g/dL (33.0-35.0) L 01/08/24 06:20 RDW 13.6 % (11.6-16.5) 01/08/24 06:20 Plt Count 241 X10^3/uL (150.0-450.0) 01/08/24 06:20 MPV 8.0 fL (7.4-11.0) 01/08/24 06:20 Neut % (Auto) 69.9 % (42.0-75.0) 01/08/24 06:20 Lymph % (Auto) 23.5 % (21.0-51.0) 01/08/24 06:20 Towns % (Auto) 6.1 % (0.0-13.0) 01/08/24 06:20 Eos % (Auto) 0.2 % (0.9-2.9) L 01/08/24 06:20 Baso % (Auto) 0.3 % (0.2-1.0) 01/08/24 06:20 Neut # (Auto) 7.9 x10^3/uL (2.2-4.8) H 01/08/24 06:20 Lymph # (Auto) 2.7 X10^3/uL (1.3-2.9) 01/08/24 06:20 [place]s # (Auto) 0.7 x10^3/uL (0.3-0.8) 01/08/24 06:20 Eos # (Auto) 0.0 x10^3/uL (0.0-0.2) 01/08/24 06:20 Baso # (Auto) 0.0 X10^3/uL (0.0-0.1) 01/08/24 06:20 Absolute Nucleated RBC 0.1 /100WBC 01/08/24 06:20 Sodium 140 mmol/L (136-145) 01/08/24 06:20 Corrected Sodium TNP 01/08/24 06:20 Potassium 4.0 mmol/L (3.5-5.1) 01/08/24 06:20 Chloride 106 mmol/L (98-107) 01/08/24 06:20 Carbon Dioxide 26.7 mmol/L (21-32) 01/08/24 06:20 BUN 12 mg/dL (7-18) 01/08/24 06:20 Creatinine 0.97 mg/dL (0.55-1.02) 01/08/24 06:20 Est GFR (MDRD) Af Amer > 60 (>60) 01/08/24 06:20 Est GFR (MDRD) Non-Af 60 (>60) 01/08/24 06:20 Glucose 107 mg/dL (65-99) H 01/08/24 06:20 Calcium 8.7 mg/dL (8.5-10.1) 01/08/24 06:20 Corrected Calcium 9.6 mg/dL (8.5-10.1) 01/08/24 06:20 Magnesium 2.3 mg/dL (2.0-2.9) 01/07/24 05:44 Total Bilirubin 0.30 mg/dL (0.2-1.0) 01/08/24 06:20 AST 24 Units/L (15-37) 01/08/24 06:20 ALT 34 Units/L (12-78) 01/08/24 06:20 Alkaline Phosphatase 73 Units/L (46-116) 01/08/24 06:20 Total Protein 7.4 g/dL (6.4-8.2) 01/08/24 06:20 Albumin 2.9 g/dL (3.4-5.0) L 01/08/24 06:20 Globulin 4.5 g/dL (2.5-4.5) 01/08/24 06:20 Albumin/Globulin Ratio 0.6 Ratio (1.1-2.1) L 01/08/24 06:20 Lipase 44 Units/L (16-77) 01/06/24 17:45 Specimen Type Clean catch urine 01/06/24 19:45 Urine Color Straw (YELLOW) 01/06/24 19:45 Urine Appearance Clear (CLEAR) 01/06/24 19:45 Urine pH 7.0 (5.0 - 8.0) 01/06/24 19:45 Ur Specific [place] 1.015 (1.000-1.030) 01/06/24 19:45 Urine Protein Negative (NEGATIVE) 01/06/24 19:45 Urine Glucose (UA) Negative (NEGATIVE) 01/06/24 19:45 Urine Ketones Negative (NEGATIVE) 01/06/24 19:45 Urine Blood Negative (NEGATIVE) 01/06/24 19:45 Urine Nitrite Negative (NEGATIVE) 01/06/24 19:45 Urine Bilirubin Negative (NEGATIVE) 01/06/24 19:45 Urine Urobilinogen Normal (NORMAL) 01/06/24 19:45 Ur Leukocyte Esterase Negative (NEGATIVE) 01/06/24 19:45 Reason For Visit: LABRYNTHITIS Discharge Date Discharge Date: 01/08/24 Discharge Diagnosis All Active Problems (Updated 01/07/24 @ 11:01 by Michele Whelan) Dehydration (Acute) Acute chest wall pain (Acute) Bacterial pleurisy (Acute) Dizziness (Acute) Acute labyrinthitis (Acute) Nausea and vomiting in adult patient (Acute) Plan of Treatment: Continue with present treatment and follow up plan. Pt is to keep follow up appointment as instructed and take medications as ordered. Discharge Medications Discharge Medications: iodine Allergy (Verified 10/31/19 02:39) CONTINUE taking the following medications amoxicillin 875 mg-potassium clavulanate 125 mg tablet 1 tab PO BID 01/06/24 [History] apixaban 5 mg tablet (Eliquis) 5 mg PO BID 01/06/24 [History] cholecalciferol (vitamin D3) 1,250 mcg (50,000 unit) capsule 1,250 mcg PO QWEEK 01/06/24 [History] levothyroxine 50 mcg tablet 50 mcg PO QAM disorder of thyroid gland 01/06/24 [History] metoprolol succinate 25 mg tablet,extended release 24 hr 25 mg PO QDAY blood pressure 01/06/24 [History] pantoprazole 40 mg tablet,delayed release 40 mg PO QDAY 01/06/24 [History] pramipexole 1 mg tablet 1 mg PO QDAY 01/06/24 [History] simvastatin 40 mg tablet 40 mg PO QPM cholesterol 01/06/24 [History] venlafaxine 37.5 mg capsule,extended release 24 hr 37.5 mg PO QDAY 01/06/24 [History] Discharge Disposition Assessment: No distress noted. Discharge Plan Discharge Plan Hospital Course: Pt is a 73 year old female with past medical history of hypertension, hypothyroidism, depression, presenting admitted for labyrinthitis, vertigo, dehydration. Her hospital/treatment course included IV fluids D5 normal saline at 80 mL/h, meclizine 25 mg 3 times daily, antibiotics: Augmentin twice daily, ativan prn, Zofran as needed for nausea. Home medications were resumed. Physical therapy. Pt responded well to treatment and symptoms significantly improved. Rx augmentin, prednisone, and meclizine. Pt discharged in stable condition with home health, instructed to follow up with pcp in 1 week. Patient Disposition: HOME HEALTH SERVICE Condition: Stable Health Concerns: Post Hospitalization: new medications and changes needed to prevent readmission or further decline. Pt educated and given instructions on all concerns. Care Plan Goals: Problem: Infection Goal: Temperature within normal limits. Resolved infection. Instructions: Follow provided instructions. Follow up with primary physician as directed. Contact primary care physician or report to the closest Emergency Room if condition worsens. Plan of Treatment: Continue with present treatment and follow up plan. Pt is to keep follow up appointment as instructed and take medications as ordered. Assessment: No distress noted. Prescriptions: New prednisone 20 mg Tablet 20 mg PO QDAY 5 Days Qty: 5 0RF meclizine 25 mg Tablet 25 mg PO TID PRN10 Days Qty: 30 0RF amoxicillin-pot clavulanate 875-125 mg Tablet 1 tab PO BID 10 Days Qty: 20 0RF Discontinued meclizine 25 mg tablet 25 mg PO TID PRNQty: 21 0RF amoxicillin-pot clavulanate 875-125 mg tablet 1 tab PO BID No Action pramipexole 1 mg tablet 1 mg PO QDAY venlafaxine 37.5 mg capsule,extended release 24hr 37.5 mg PO QDAY simvastatin 40 mg tablet 40 mg PO QPM levothyroxine 50 mcg tablet 50 mcg PO QAM pantoprazole 40 mg tablet,delayed release (DR/EC) 40 mg PO QDAY metoprolol succinate 25 mg tablet extended release 24 hr 25 mg PO QDAY cholecalciferol (vitamin D3) 1,250 mcg (50,000 unit) capsule 1,250 mcg PO QWEEK Eliquis 5 mg tablet 5 mg PO BID Follow ups/Referrals Follow ups/Referrals: THOMAS PEDERSON [STAFF PHYSICIAN] - 01/08/24 12:29 pm (Referral faxed to [facility] ) RADHA AGUDELO [REFERRING] - 01/14/24 2:00 pm Instructions Instructions: Vertigo, [id number], Labyrinthitis, [id number], Nausea and Vomiting, Adult, [id number] Stand Alone Forms: Excuse From Work or School, [facility], Post Hospital Follow Up Care
== END 2024-01-08 13:45 | disposition home health service (06) ==
LOC: ER 17:04 → MED/SURG 17:04
PROVIDERS: ADMIT Family Medicine; ATTEND Family Medicine
DX: R42 Dizziness and giddiness; R11.2 Nausea with vomiting, unspecified; E03.8 Other specified hypothyroidism; E86.0 Dehydration; H83.09 Labyrinthitis, unspecified ear; R26.81 Unsteadiness on feet; R51.9 Headache, unspecified; I10 Essential (primary) hypertension; Z86.73 Personal history of transient ischemic attack (TIA), and cerebral infarction without residual deficits; Z79.01 Long term (current) use of anticoagulants